=== PATIENT | female | born 1945 | race Caucasian/White ===

== ENCOUNTER 2018-06-03 08:09 | Inpatient (IN) ==
[2018-06-03] MEDS ORDERED: Dextrose 50% in Water 50 ML Vial IV.PUSH PRN (13:17)
[2018-06-03] MEDS ORDERED: Acetaminophen 325 MG Tablet PO PRN (13:18)
[2018-06-03] MEDS ORDERED: Morphine Inj 4 MG/ML Vial IV.PUSH PRN (13:20)
[2018-06-03] MEDS: Sod Chloride 0.9% Inj 1,000 ML IV.CONT SCH (15:02)
--- NOTE | 2018-06-03 15:22 | P.HPIM ---
History of Present Illness Primary Care Physician: UNKNOWN Chief Complaint: Abdominal pain History of Present Illness: The patient is a 73-year-old female history of COPD and diabetes who is presenting to the hospital with severe lower abdominal pain. The patient states that on Sunday she developed severe pain in the pubic area of her abdomen. She said it was accompanied by a sensation that felt like she had to have a bowel movement. She says the pain would get to a severity of an 8 out of 10 at its worst. She says the pain gets bad and then gets good and then bad again. She has had chills and has had sweating so bad that she soaked the sheets. She did not measure her temperature. She has had some nausea at times. She denies any diarrhea. He has been feeling constipated. She says eventually the pain got so bad she came into the hospital. She says her last colonoscopy was about 2 years ago and the only abnormalities were the typical polyps. She does not recall history of diverticulosis. She denies any weight gain or weight loss. She says the last thing she ate was last night she had a little bit of coffee this morning. Discussed with nursing at the bedside. Inpatient Certification Inpatient Certification: I certify that the inpatient services were ordered in accordance with Medicare regulations governing the order. This includes certification that hospital inpatient services are reasonable and necessary and in the case of services not specified as inpatient-only under 42 CFR 419.22(n), that they are appropriately provided as inpatient services in accordance to with the 2-midnight benchmark under 43 CFR 412.3(e) Estimated Total Length of Stay (Days): 2 Plans for Post Hospital Care: Home Review of Systems Review of Systems: all other systems reviewed are negative [facility] Medical History Medical History Benign essential tremor (Acute) Skin cancer (Acute) COPD (chronic obstructive pulmonary disease) (Acute) Diabetes (Acute) History of hysterectomy (Acute) Surgical History Surgical History H/O: section (Acute) History of cholecystectomy (Acute) Family History Family History Other Patient denies significant medical history Social History Social History Substance History: No History of Abuse Second Hand Smoke Exposure: Yes Smoking Status: Current every day smoker Tobacco Type: Cigarettes How Often Do You Have a Drink Containing Alcohol: Monthly or less Medications and Allergies Allergies Allergy/AdvReac Type Severity Reaction Status Date / Time Sulfa (Sulfonamide Allergy Unknown Rash Verified 06/03/18 08:23 Antibiotics) Home Medications Medication Instructions Recorded Confirmed Type albuterol sulfate 0.63 mg INHALATION QID PRN 06/03/18 06/03/18 History metformin 500 mg PO BID 06/03/18 06/03/18 History Active Medications: Active Medications Acetaminophen (Tylenol) 650 mg PO Q4H PRN PRN Reason: Temp > 100.4, pain 1-2 Dextrose (D50w Vial) 50 ml IV.PUSH UNSCH PRN PRN Reason: PER HYPOGLYCEMIA PROTOCOL Glucagon (Glucagon Inj) 1 mg OTHER UNSCH PRN PRN Reason: for Hypoglycemia Protocol Sodium Chloride (Ns Inj) 1,000 mls @ 100 mls/hr IV.CONT .Q10H MONET Last Admin: 06/03/18 15:02 Dose: 100 mls/hr Metronidazole/Sodium Chloride (Flagyl 500 Mg Inj) 100 mls @ 100 mls/hr IV.SIG Q8H MONET Levofloxacin/Dextrose (Levaquin 750 Mg Premix Inj) 150 mls @ 100 mls/hr IV.SIG Q24H MONET Insulin Aspart (Novolog Insulin Correctional Sugar Inj) 0 unit SQ Q6HR MONET; Protocol Morphine Sulfate (Morphine Inj) 4 mg IV.PUSH Q4H PRN PRN Reason: SEVERE PAIN Ondansetron HCl (Zofran Inj) 4 mg IV.PUSH Q6H PRN PRN Reason: NAUSEA OR VOMITING Sodium Chloride (Ns Flush) 2 ml IV.FLUSH BID MONET Sodium Chloride (Ns Flush) 2 ml IV.FLUSH UNSCH PRN PRN Reason: FLUSH AFTER USING IV ACCESS Physical Exam Vital signs: Vital Signs 06/03/18 14:44 Temperature 97.7 F Respiratory Rate 16 Blood Pressure 114/59 L Pulse Oximetry 95 Narrative: General: Nad HEENT: NC, AT Cardiac: RRR Lungs: CTAB Abdomen: +BS, soft, tender in the suprapubic area Extremities: No edema Neuro: No gross deficits Psych: Mood and affect appropriate Caprini VTE Risk Assessment Caprini VTE Risk Assessment: Moderate/High Risk (score >= 2) Caprini Risk Assessment Model: Point Value = 1 Point Value = 2 Point Value = 3 Point Value = 5 Age 41-60 Minor surgery BMI > 25 kg/m2 Swollen legs Varicose veins or History of unexplained or recurrent spontaneous Oral contraceptives or hormone replacement Sepsis (< 1 month) Serious lung disease, including pneumonia (< 1 month) Abnormal pulmonary function Acute myocardial infarction Congestive heart failure (< 1 month) History of inflammatory bowel disease Medical patient at bed rest Age 61-74 Arthroscopic surgery Major open surgery (> 45 min) Laparoscopic surgery (> 45 min) Malignancy Confined to bed (> 72 hours) Immobilizing plaster cast Central venous access Age >= 75 History of VTE Family history of VTE Factor V Leiden Prothrombin [id number] Lupus anticoagulant Anticardiolipin antibodies Elevated serum homocysteine Heparin-induced thrombocytopenia Other congenital or acquired thrombophilia Stroke (< 1 month) Elective arthroplasty Hip, pelvis, or leg fracture Acute spinal cord injury (< 1 month) Prophylaxis Regimen: Total Risk Factor Score Risk Level Prophylaxis Regimen 0-1 Low Early ambulation 2 Moderate Order ONE of the following: *Sequential Compression Device (SCD) *Heparin 5000 units SQ BID 3-4 Higher Order ONE of the following medications: *Heparin 5000 units SQ TID *Enoxaparin/Lovenox 40 mg SQ daily (WT < 150 kg, CrCl > 30 mL/min) *Enoxaparin/Lovenox 30 mg SQ daily (WT < 150 kg, CrCl > 10-29 mL/min) *Enoxaparin/Lovenox 30 mg SQ BID (WT < 150 kg, CrCl > 30 mL/min) AND/OR *Sequential Compression Device (SCD) 5 or more Highest Order ONE of the following medications: *Heparin 5000 units SQ TID (Preferred with Epidurals) *Enoxaparin/Lovenox 40 mg SQ daily (WT < 150 kg, CrCl > 30 mL/min) *Enoxaparin/Lovenox 30 mg SQ daily (WT < 150 kg, CrCl > 10-29 mL/min) *Enoxaparin/Lovenox 30 mg SQ BID (WT < 150 kg, CrCl > 30 mL/min) AND *Sequential Compression Device (SCD) Assessment and Plan Plan Diverticular abscess The patient presents with severe suprapubic abdominal pain and imaging revealed : Abnormal mid sigmoid colon characteristic of acute diverticulitis with 3.6 x 2.8 cm air-fluid level likely representing a diverticular abscess; A portion of this may be extraluminal but given the location and size is not amenable to percutaneous drainage; There is an ovoid soft tissue density structure in the left pelvis/adnexa measuring 3.6 x 3.1 cm; This could represent localized phlegmonous inflammatory change, an enlarged regional lymph node, or an enlarged inflamed ovary. -general surgery has been consulted. -IR consulted for drainage of abscess. -continue IV Levaquin and Flagyl. -pain control as needed. -NPO with IVFs for now. DM On metformin as an outpt. -insulin sliding scale. COPD On home oxygen at night. No respiratory distress. -oxygen as needed. -nebs as needed. -smoking cessation instruction. PPx: SCDs Code Status: Full
[2018-06-03] MEDS: Insulin NovoLOG Aspart Correctional Sugar Inj SQ SCH (17:29)
[2018-06-03 17:48] LABS: Activated Partial Thrombo Time 28.6 sec (23.4-31.7); INR 1.1 Ratio
[2018-06-04] MEDS: Insulin NovoLOG Aspart Correctional Sugar Inj SQ SCH ×5 (00:28→23:45)
[2018-06-04] MEDS: Sod Chloride 0.9% Inj 1,000 ML IV.CONT SCH ×3 (01:31→21:32)
[2018-06-04] MEDS ORDERED: Diatrizoate Meglum/Diatrizoate Sod Liq 9 ML UDC PO ONE ×2 (06:00→13:22)
[2018-06-04 07:16] LABS: Baso % (Auto) 0.4 % (0.0-2.0); Eos # (Auto) 0.1 th/mm3 (0.0-0.4); Eos % (Auto) 1.2 % (0.0-4.0); Hematocrit 37.2 % (35.0-46.0); Hemoglobin 12.7 gm/dL (11.6-15.3); Lymph # (Auto) 1.5 th/mm3 (1.0-4.8); Lymph % (Auto) 22.4 % (9.0-44.0); Mean Corpuscular Volume 91.1 fL (80.0-100.0); Mean Platelet Volume 7.8 fL (7.0-11.0); Mono # (Auto) 0.4 th/mm3 (0.0-0.9); Mono % (Auto) 5.8 % (0.0-8.0); Neut # (Auto) 4.7 th/mm3 (1.8-7.7); Neut % (Auto) 70.2 % (16.0-70.0); Platelet Count 164 th/mm3 (150-450); Red Blood Count 4.09 mil/mm3 (4.00-5.30); Red Cell Distribution Width 13.7 % (11.6-17.2); White Blood Count 6.8 th/mm3 (4.0-11.0)
[2018-06-04 07:22] LABS: INR 1.1 Ratio; Prothrombin Time 10.9 sec (9.8-11.6)
[2018-06-04 07:49] LABS: Albumin 2.6 g/dL (3.4-5.0); Anion Gap 8 meq/L (5-15); Aspartate Aminotransferase 21 U/L (15-37); Blood Urea Nitrogen 10 mg/dL (7-18); Calcium 8.1 mg/dL (8.5-10.1); Carbon Dioxide 28.4 meq/L (21.0-32.0); Chloride 108 meq/L (98-107); Glomerular Filtration Rate 82 mL/min (>89); Glucose,Random 89 mg/dL (74-106); Potassium 3.8 meq/L (3.5-5.1); Sodium 144 meq/L (136-145)
[2018-06-04 07:52] LABS: Alanine Aminotransferase 21 U/L (10-53); Alkaline Phosphatase 84 U/L (45-117); Total Protein 6.1 g/dL (6.4-8.2)
--- NOTE | 2018-06-04 10:43 | P.RAD ---
Radiology Note 73 Y/O with a diverticular abscess noted on Ct scan of 06/03/18. PT was scheduled for CT guided abscess drainage. Planning CT prior to drainage demonstrated significant interval improvement with only a small amount of fluid remaining and mostly inflammatory stranding. Due to the significant improvement and only minimal fluid no drainage catheter was placed. Pt will need follow up CT in 48 hours to confirm resolution. Full dictated report in PACS to follow.
--- NOTE | 2018-06-04 11:21 | CT ---
EXAM DATE: 06/04/2018 10:47 AM EST AGE/SEX: 73 years / Female INDICATIONS: Diverticular abscess CLINICAL DATA: This is the patient's initial encounter. Patient reports that signs and symptoms have been present for 1 day and indicates a pain score of 5/10. MEDICAL/SURGICAL HISTORY: None. None. RADIATION DOSE: 10.42 CTDI (mGy) COMPARISON: [facility], CT ABDOMEN & PELVIS W/O CONTRAST, 06/03/2018. . TECHNIQUE: Multiple contiguous axial images were obtained through the abdomen. Images were obtained using multiple row detector helical technique. Using automated exposure control and adjustment of the mA and/or kV according to patient size, radiation dose was kept as low as reasonably achievable to o btain optimal diagnostic quality images. DICOM format image data is available electronically for rev iew and comparison. FINDINGS: The patient is a 73-year-old with a known diverticular abscess. The patient was initially scheduled f or CT-guided drainage. The patient was given oral contrast as the collection was in close association with the colon. The patient was brought down to the radiology suite and scanned prior to CT-guided d rain placement. Imaging through the pelvis demonstrates good opacification of the colon. The overall size of the area of abscess and phlegmon has significantly decreased. Since there was significant improvement in the appearance of the collection and only a minimal amount of drainable fluid remained the decision was m amanda not to place a drain in the area at this time. This was discussed with the patient while she was on the CT scanner. Evaluation of the source data demonstrates contrast opacifying the colon there is no evidence of elvia l obstruction. The collection in the pelvis remains evident. This measures only approximately 1.9 x 2 .5 cm on today's study. There is no free air. No free fluid is seen. No retroperitoneal adenopathy is evident. CONCLUSION: 1. There is a small fluid collection within the pelvis immediately adjacent to the sigmoid colon how ever this appears significantly improved when compared to the previous study of 06/03/2018. The decisi on was made not to place a drainage catheter within this as this appears to be resolving on its own. Patient will need a follow-up CT scan in 48 hours to document resolution. Electronically signed by: Lopez Harvey MD Board Certified Radiologist 06/04/2018 11:20 AM EST
--- NOTE | 2018-06-04 17:32 | P.CONGS ---
[facility] Gen Surgery Consult Note Consult date: 06/04/18 Narrative: 73 yo F with 3-4 days of severe suprapubic pain which she initially thought was a UTI. + nausea. She was noted on CT a/p to have diverticulitis with associated abscess. No previous h/o diverticulitis. She has COPD and DM. PSH includes hysterectomy via lower midline incision and open cholecystectomy. Review of Systems All other systems reviewed negative except as stated in [facility] - History History Provided By: Patient - Medical History Medical History: Medical History (Last Updated 06/03/18 @ 15:28 by Quan Montoya DO) Benign essential tremor Skin cancer COPD (chronic obstructive pulmonary disease) Diabetes History of hysterectomy - Surgical History Surgical History: Surgical History (Last Reviewed 06/03/18 @ 15:18 by Quan Montoya DO) H/O: section History of cholecystectomy - Family History Family History: Family History (Last Reviewed 06/03/18 @ 15:19 by Quan Montoya DO) Other Patient denies significant medical history - Tobacco History Second Hand Smoke Exposure: Yes Tobacco Use In Past 30 Days: Yes Smoking Status: Current every day smoker Tobacco Type: Cigarettes - Alcohol History How Often Do You Have a Drink Containing Alcohol: Never - Substance Use History Substance History: No History of Abuse - Immunization History Tetanus Immunization: <5 Years Hx Influenza Vaccine This Season: Yes Medications and Allergies Active Medications: Active Medications Acetaminophen (Tylenol) 650 mg PO Q4H PRN PRN Reason: Temp > 100.4, pain 1-2 Dextrose (D50w Vial) 50 ml IV.PUSH UNSCH PRN PRN Reason: PER HYPOGLYCEMIA PROTOCOL Glucagon (Glucagon Inj) 1 mg OTHER UNSCH PRN PRN Reason: for Hypoglycemia Protocol Sodium Chloride (Ns Inj) 1,000 mls @ 100 mls/hr IV.CONT .Q10H MONET Last Admin: 06/04/18 13:53 Dose: Not Given Metronidazole/Sodium Chloride (Flagyl 500 Mg Inj) 100 mls @ 100 mls/hr IV.SIG Q8H MONET Last Infusion: 06/04/18 11:56 Dose: Infused Levofloxacin/Dextrose (Levaquin 750 Mg Premix Inj) 150 mls @ 100 mls/hr IV.SIG Q24H MONET Last Infusion: 06/04/18 10:25 Dose: Infused Insulin Aspart (Novolog Insulin Correctional Sugar Inj) 0 unit SQ Q6HR MONET; Protocol Last Admin: 06/04/18 12:36 Dose: Not Given Morphine Sulfate (Morphine Inj) 4 mg IV.PUSH Q4H PRN PRN Reason: SEVERE PAIN Ondansetron HCl (Zofran Inj) 4 mg IV.PUSH Q6H PRN PRN Reason: NAUSEA OR VOMITING Sodium Chloride (Ns Flush) 2 ml IV.FLUSH BID MONET Last Admin: 06/04/18 08:56 Dose: Not Given Sodium Chloride (Ns Flush) 2 ml IV.FLUSH UNSCH PRN PRN Reason: FLUSH AFTER USING IV ACCESS Allergies Allergy/AdvReac Type Severity Reaction Status Date / Time Sulfa (Sulfonamide Allergy Unknown Rash Verified 06/03/18 08:23 Antibiotics) Home Medications Medication Instructions Recorded Confirmed Type albuterol sulfate 0.63 mg INHALATION QID PRN 06/03/18 06/03/18 History metformin 500 mg PO BID 06/03/18 06/03/18 History Exam Vital signs: Vital Signs 06/03/18 20:00 06/04/18 00:00 06/04/18 04:00 Temperature 98.2 F 98.7 F 98.3 F Pulse Rate 83 80 77 Respiratory Rate 18 18 18 Blood Pressure 107/55 L 108/49 L 129/60 Pulse Oximetry 94 L 94 L 98 06/04/18 08:00 06/04/18 12:00 Temperature 98.5 F Pulse Rate 80 75 Respiratory Rate 16 Blood Pressure 112/80 Pulse Oximetry 95 Intake & Output 06/03/18 06/04/18 06/04/18 18:59 06:59 18:59 Intake Total 1200 / 1200 1250 / 1250 Balance 1200 / 1200 1250 / 1250 Weight 73.5 kg 76.8 kg Intake: IV 1200 / 1200 1250 / 1250 NS Inj 1,000 ML @ 100 mls/hr IV 1000 / 1000 1000 / 1000 .CONT .Q10H MONET Rx#:[id number] Levaquin 750 mg Premix Inj 150 150 / 150 ML @ 100 mls/hr IV.SIG Q24H MONET Rx#:[id number] Flagyl 500 MG Inj 100 ML @ 100 200 / 200 100 / 100 mls/hr IV.SIG Q8H MONET Rx#: [id number] Oral 0 / 0 Other: # Voids 2 Weight On Admission 73.5 kg Narrative: GENERAL: Awake and alert. No acute distress. Cooperative. HEAD: Normocephalic. Atraumatic. EYES: Pupils equal round and reactive to light bilaterally. No scleral icterus. ENT: Moist oral mucosa. NECK: Trachea midline. CHEST: Nonlabored breathing. No respiratory distress. CARDIOVASCULAR: Regular rate and rhythm. ABDOMEN: Moderate LLQ and suprapubic ttp. No rebound or guarding. Lower midline scar and right subcostal scar EXTREMITIES: No cyanosis or edema. SKIN: Warm, dry, nonjaundiced. Results - Labs 06/04/18 05:57 06/04/18 00:57 Laboratory Results - last 24 hr 06/03/18 06/03/18 06/04/18 16:52 22:26 00:57 WBC RBC Hgb Hct MCV MCH MCHC RDW Plt Count MPV Neut % (Auto) Lymph % (Auto) [place] % (Auto) Eos % (Auto) Baso % (Auto) Neut # (Auto) Lymph # (Auto) [place] # (Auto) Eos # (Auto) Baso # (Auto) WBC Differential Differential Comment PT 11.0 INR 1.1 APTT 28.6 Sodium 144 Potassium 3.8 Chloride 108 H Carbon Dioxide 28.4 Anion Gap 8 BUN 10 Creatinine 0.70 Estimated GFR 82 L POC Glucose 92 Random Glucose 89 Calcium 8.1 L D Total Bilirubin 0.7 AST 21 ALT 21 Alkaline Phosphatase 84 Total Protein 6.1 L D Albumin 2.6 L 06/04/18 06/04/18 06/04/18 05:11 05:57 05:59 WBC 6.8 RBC 4.09 Hgb 12.7 Hct 37.2 MCV 91.1 MCH 31.0 MCHC 34.0 RDW 13.7 Plt Count 164 MPV 7.8 Neut % (Auto) 70.2 H Lymph % (Auto) 22.4 [place] % (Auto) 5.8 Eos % (Auto) 1.2 Baso % (Auto) 0.4 Neut # (Auto) 4.7 Lymph # (Auto) 1.5 [place] # (Auto) 0.4 Eos # (Auto) 0.1 Baso # (Auto) 0.0 WBC Differential . Differential Comment Auto diff final PT 10.9 INR 1.1 APTT Sodium Potassium Chloride Carbon Dioxide Anion Gap BUN Creatinine Estimated GFR POC Glucose 91 Random Glucose Calcium Total Bilirubin AST ALT Alkaline Phosphatase Total Protein Albumin 06/04/18 12:36 WBC RBC Hgb Hct MCV MCH MCHC RDW Plt Count MPV Neut % (Auto) Lymph % (Auto) [place] % (Auto) Eos % (Auto) Baso % (Auto) Neut # (Auto) Lymph # (Auto) [place] # (Auto) Eos # (Auto) Baso # (Auto) WBC Differential Differential Comment PT INR APTT Sodium Potassium Chloride Carbon Dioxide Anion Gap BUN Creatinine Estimated GFR POC Glucose 129 H Random Glucose Calcium Total Bilirubin AST ALT Alkaline Phosphatase Total Protein Albumin - Imaging Imaging: ITS Impressions Abdomen/Pelvis CT 06/04/18 10:15 CONCLUSION: 1. There is a small fluid collection within the pelvis immediately adjacent to the sigmoid colon however this appears significantly improved when compared to the previous study of 06/03/2018. The decision was made not to place a drainage catheter within this as this appears to be resolving on its own. Patient will need a follow-up CT scan in 48 hours to document resolution. CT scan - abdomen: report reviewed, image reviewed CT scan - pelvis: report reviewed, image reviewed Assessment and Plan - Assessment (1) Diverticulitis large intestine Code(s): K57.32 - Diverticulitis of large intestine without perforation or abscess without bleeding Status: Acute (2) Intra-abdominal abscess Code(s): K65.1 - Peritoneal abscess Status: Acute - Plan Diverticulitis with abscess- She states she feels significantly improved today. She is tolerating some regular diet. + liquid stools this am. CT prior to CT guided drainage showed significant improvement; therefore, no drainage was performed. Recommend continued IV antibiotics and likely dc home tomorrow on oral antibiotics (levaquin/flagyl x 7 days) with outpatient followup if she continues to tolerate diet and pain improve.
[2018-06-04 22:19] VITALS: RESP 18
--- NOTE | 2018-06-04 23:29 | P.PNIM ---
Physical Exam Vital signs: Vital Signs 06/04/18 00:00 06/04/18 04:00 06/04/18 08:00 Temperature 98.7 F 98.3 F 98.5 F Pulse Rate 80 77 80 Respiratory Rate 18 18 16 Blood Pressure 108/49 L 129/60 112/80 Pulse Oximetry 94 L 98 95 06/04/18 12:00 06/04/18 16:00 06/04/18 20:00 Temperature 97.8 F 98.3 F 97.7 F Pulse Rate 75 84 84 Respiratory Rate 18 16 18 Blood Pressure 123/69 129/62 147/66 H Pulse Oximetry 94 L 94 L 93 L Intake & Output 06/04/18 06/04/18 06/05/18 06:59 18:59 06:59 Intake Total 1200 / 1200 1730 / 1730 100 / 100 Balance 1200 / 1200 1730 / 1730 100 / 100 Weight 76.8 kg Intake: IV 1200 / 1200 1250 / 1250 100 / 100 NS Inj 1,000 ML @ 100 mls/hr IV 1000 / 1000 1000 / 1000 .CONT .Q10H MONET Rx#:[id number] Levaquin 750 mg Premix Inj 150 150 / 150 ML @ 100 mls/hr IV.SIG Q24H MONET Rx#:[id number] Flagyl 500 MG Inj 100 ML @ 100 200 / 200 100 / 100 100 / 100 mls/hr IV.SIG Q8H MONET Rx#: [id number] Oral 0 / 0 480 / 480 Other: # Voids 2 4 # Bowel Movements 3 Results Labs CBC & Chem 7: 06/04/18 05:57 06/04/18 00:57 Imaging Imaging: Impressions Abdomen/Pelvis CT 06/04/18 10:15 CONCLUSION: 1. There is a small fluid collection within the pelvis immediately adjacent to the sigmoid colon however this appears significantly improved when compared to the previous study of 06/03/2018. The decision was made not to place a drainage catheter within this as this appears to be resolving on its own. Patient will need a follow-up CT scan in 48 hours to document resolution. Assessment and Plan (1) Diverticulitis large intestine: Code(s): K57.32 - Diverticulitis of large intestine without perforation or abscess without bleeding Status: Acute (2) Intra-abdominal abscess: Code(s): K65.1 - Peritoneal abscess Status: Acute Progress Note: Quality VTE Deep Vein Thrombosis/Pulmonary Embolism Present on Admission: No _ (1) Diverticulitis large intestine Qualifiers: Diverticulitis bleeding: Diverticulitis complication:
[2018-06-05] MEDS: Insulin NovoLOG Aspart Correctional Sugar Inj SQ SCH ×2 (05:52→15:05)
[2018-06-05] MEDS: Sod Chloride 0.9% Inj 1,000 ML IV.CONT SCH (06:38)
[2018-06-05 11:54] VITALS: BP 156/67; PULSE 88; TEMP 98.1; O2SAT 97
--- NOTE | 2018-06-05 13:26 | P.PNGS ---
Subjective Interval history: Tolerating diet. Minimal pain today. + BM. Physical Exam Vital signs: Vital Signs 06/04/18 16:00 06/04/18 20:00 06/05/18 02:00 Temperature 98.3 F 97.7 F Pulse Rate 84 75 68 Respiratory Rate 16 18 Blood Pressure 129/62 120/55 L Pulse Oximetry 94 L 93 L 06/05/18 04:00 06/05/18 08:00 06/05/18 11:54 Temperature 97.6 F 97.8 F 98.1 F Pulse Rate 75 71 88 Respiratory Rate 18 18 18 Blood Pressure 129/61 148/68 H 156/67 H Pulse Oximetry 100 96 97 Intake & Output 06/04/18 06/05/18 06/05/18 18:59 06:59 18:59 Intake Total 1730 / 1730 800 / 800 Balance 1730 / 1730 800 / 800 Weight 77.1 kg Intake: IV 1250 / 1250 200 / 200 NS Inj 1,000 ML @ 100 mls/hr IV 1000 / 1000 .CONT .Q10H MONET Rx#:[id number] Levaquin 750 mg Premix Inj 150 150 / 150 ML @ 100 mls/hr IV.SIG Q24H MONET Rx#:[id number] Flagyl 500 MG Inj 100 ML @ 100 100 / 100 200 / 200 mls/hr IV.SIG Q8H MONET Rx#: [id number] Oral 480 / 480 600 / 600 Other: # Voids 4 5 # Bowel Movements 3 0 Narrative: NAD Abd: soft, mild LLQ ttp Results - Labs 06/04/18 05:57 06/04/18 00:57 Laboratory Results - last 24 hr 06/04/18 06/04/18 06/05/18 17:54 23:44 05:52 POC Glucose 158 H 133 H 129 H 06/05/18 12:52 POC Glucose 125 H - Imaging Imaging: ITS Impressions Abdomen/Pelvis CT 06/04/18 10:15 CONCLUSION: 1. There is a small fluid collection within the pelvis immediately adjacent to the sigmoid colon however this appears significantly improved when compared to the previous study of 06/03/2018. The decision was made not to place a drainage catheter within this as this appears to be resolving on its own. Patient will need a follow-up CT scan in 48 hours to document resolution. Assessment and Plan - Assessment (1) Diverticulitis large intestine Code(s): K57.32 - Diverticulitis of large intestine without perforation or abscess without bleeding Status: Acute (2) Intra-abdominal abscess Code(s): K65.1 - Peritoneal abscess Status: Acute - Plan Diverticulitis with abscess- Continuing to improve. CLear for dc home on 7 days levaquin/flagyl. F/u with me in one week. Will likely repeat CT a/p as outpatient.
--- NOTE | 2018-06-05 23:53 | P.DS ---
DS: Providers Date of admission: 06/03/18 14:24 Primary care physician: UNKNOWN Consults: 06/03/18 13:16 Consult to General Surgery Routine Consulting Provider: Cj Urbina Patient known to:: Cj Urbina Reason for Consultation: Diverticular abscess Notified:: Service Spoke with:: KIRK Date Notified:: 06/03/18 Time Notified:: 14:35 Ordering Provider: MITRA Brief History from admission: The patient is a 73-year-old female history of COPD and diabetes who is presenting to the hospital with severe lower abdominal pain. The patient states that on Sunday she developed severe pain in the pubic area of her abdomen. She said it was accompanied by a sensation that felt like she had to have a bowel movement. She says the pain would get to a severity of an 8 out of 10 at its worst. She says the pain gets bad and then gets good and then bad again. She has had chills and has had sweating so bad that she soaked the sheets. She did not measure her temperature. She has had some nausea at times. She denies any diarrhea. He has been feeling constipated. She says eventually the pain got so bad she came into the hospital. She says her last colonoscopy was about 2 years ago and the only abnormalities were the typical polyps. She does not recall history of diverticulosis. She denies any weight gain or weight loss. She says the last thing she ate was last night she had a little bit of coffee this morning. Discussed with nursing at the bedside. DS: Diagnosis Discharge Diagnosis (1) Diverticulitis large intestine: Status: Acute (2) Intra-abdominal abscess: Status: Acute DS: Summary Time Spent with Patient Total time spent providing and/or coordinating discharge services: Quality: VTE Deep Vein Thrombosis/Pulmonary Embolism Present on Admission: No Results Labs on day of discharge: Labs from last 24 hours 06/05/18 06/05/18 06/04/18 12:52 05:52 23:44 POC Glucose 125 H 129 H 133 H Impressions ITS Impressions Abdomen/Pelvis CT 06/04/18 10:15 CONCLUSION: 1. There is a small fluid collection within the pelvis immediately adjacent to the sigmoid colon however this appears significantly improved when compared to the previous study of 06/03/2018. The decision was made not to place a drainage catheter within this as this appears to be resolving on its own. Patient will need a follow-up CT scan in 48 hours to document resolution. Discharge Plan Discharge Disposition Patient Disposition: 01 Discharge Home Discharge Condition Condition: Good Discharge Order Discharge Orders: Discharge Order (Routine); Ordered 06/05/18 Ordered By: Mervin Martinez Discharge Details Anticipated Discharge Date: 06/05/18 Discharge Comment: CT abdomen/pelvis with IV contrast on 06/06/2018 Physicians Team Primary Care Provider: UNKNOWN, Attending Provider: Mervin Martinez Other Providers: Cj Urbina Rxs /Orders / Referrals /Forms Prescriptions: New levofloxacin [Levaquin] 750 mg tablet 750 mg PO DAILY 10 Days Qty: 10 RF: 0 metronidazole [Flagyl] 500 mg tablet 500 mg PO Q8H 10 Days Qty: 30 RF: 0 Continue metformin 500 mg Tablet 500 mg PO BID RF: 0 albuterol sulfate 0.63 mg/3 mL Solution For Nebulization 0.63 mg INHALATION QID PRN (Reason: Shortness Of Breath Or Wheezing) RF: 0 Referrals: UNKNOWN, [Primary Care Provider] - See Instructions (Please make a follow up apt for one week from Discharge with either [employer] at [phone] or a physcian of your choice) Status ED Status: Admitted Patient Discharge Information Discharge Date/Time: 06/05/18 16:45
== END 2018-06-05 16:45 | disposition home or self-care (01) | DRG 392 ==
LOC: NEDDLT 08:09 → N04 14:24
PROVIDERS: ADMIT Hospitalist; ATTEND Hospitalist
CPT/HCPCS: 74176; 80053; 81001; 82948; 82962; 83690; 85025; 85610; 85730; 90765; 96365; 99285; J1956; J7030; Q9963